=== PATIENT | male | born 2000 ===

== ENCOUNTER 2021-03-29 08:28 | Emergency (ER) | payer OTHER, SELFPAY ==
--- NOTE | ~2021-03-29 | XR_ITS ---
EXAMINATION: XR CHEST CLINICAL INFORMATION: Cough for one COMPARISON: None TECHNIQUE: Frontal view of the chest was obtained. FINDINGS: No significant abnormality is noted involving the heart, lungs, mediastinum, bony thorax or soft tissues. XR/XR chest 1V IMPRESSION: Unremarkable chest exam.
[2021-03-29 09:02] VITALS: BP 119/79; PULSE 74; RESP 18; TEMP 36.7; O2SAT 98; BMI 38.0
--- NOTE | 2021-03-29 09:08 | ED.GENADULT ---
HPI - General Adult General Chief complaint: General Medical Stated complaint: sore throat Time Seen by Provider: 03/29/21 09:25 Source: patient Mode of arrival: ambulatory Limitations: no limitations History of Present Illness HPI narrative: Patient presents to the ED for coughing for 1 week, chest congestion, and sore throat. Patient states not vaccinated against COVID-19. Patient denies Any shortness of breath, fever, chills, night sweats, or body aches. Patient states no chest pain Related Data Previous Rx's Medication Instructions Recorded prednisone 40 mg PO DAILY #10 tab 03/29/21 Allergies Allergy/AdvReac Type Severity Reaction Status Date / Time peanut [PEANUT] Allergy Unknown CLOSES UP Verified 03/29/21 09:05 THROAT Review of Systems Review of Systems: Yes all other systems are reviewed and are negative Constitutional: Constitutional: Reports as per HPI and Reports no additional constitutional complaints Eyes: Eyes: Reports as per HPI and Reports no additional eye complaints ENT: Reports system reviewed and no additional complaints, except as documented, Reports as per HPI and Reports sore throat Cardiovascular: Cardiovascular: Reports as per HPI, Reports no additional cardiovascular complaints, Denies chest pain, Denies dyspnea and Denies dyspnea on exertion Respiratory: Respiratory: Reports as per HPI, Reports no additional respiratory complaints, Reports cough, Denies pain on inspiration, Denies pain with cough, Denies dyspnea and Denies dyspnea on exertion Gastrointestinal: Gastrointestinal: Reports as per HPI and Reports no additional gastrointestinal complaints Genitourinary: Genitourinary: Reports no additional male genitourinary complaints and Reports as per HPI Musculoskeletal: Musculoskeletal: Reports no additional musculoskeletal complaints and Reports as per HPI Neurologic: Reports system reviewed and no additional complaints, except as documented and Reports as per HPI Psychiatric: Psychiatric: Reports no additional psychiatric complaints and Reports as per HPI [facility] Past Medical History Medical History (Updated 03/29/21 @ 10:14 by FELICIA Rowley) Asthma Social History Social History Advance Directives: No Advance Directives Information Provided: No Physical Exam Vital Signs: Vital Signs: Last Vital Signs Temp 98.0 F 03/29/21 09:02 Pulse 74 03/29/21 09:02 Resp 18 03/29/21 09:02 BP 119/79 03/29/21 09:02 Pulse Ox 98 03/29/21 09:02 Body Mass Index 38.0 Const: General: cooperative, healthy appearing, comfortable, no acute distress, well developed, alert, awake and Physically active Orientation/consciousness: patient oriented x3 HENMT: Head: Yes normal to inspection, Yes No palpable skull fracture present, Yes normocephalic and Yes atraumatic Eyes: General: appearance normal, both eyes and all related structures Neck: Neck: Yes normal visual inspection, Yes full ROM, Yes no lymphadenopathy, Yes no meningeal signs, Yes trachea midline, Yes supple and No tender Chest: Chest palpation & inspection: normal inspection of the chest and normal palpation of entire chest wall Resp: Effort & Inspection: normal respiratory effort and able to speak in complete sentences Auscultation: wheezes (mild) expiratory wheezes Cardio: Jugular venous distension: no JVD Heart sounds: S1 normal heart sound present and S2 normal heart sound present GI: Inspection: Yes normal to inspection, No abdominal wall ecchymosis and Yes caput medusae present Palpation (GI): Soft to palpation, not firm, nontender, no guarding and not rigid : General: Yes Bimanual renal exam normal bilaterally, Yes bladder normal to inspection, No CVA tenderness and Yes no CVA tenderness Back/Spine/Pelvis: Back: no CVA tenderness, No CVA tenderness and No back tenderness Skin: General skin exam: no rashes or lesions noted and elasticity normal Neuro: General: patient oriented x3, gait normal, no meningeal signs and CN's II-XI intact bilaterally Cranial nerves: Yes CN's II-XII intact bilaterally Extrem: General: Yes normal to inspection and Yes full ROM Psych: Appearance: grossly normal, well kempt and not disheveled Course Course Course Narrative: Patient will have chest x-ray and COVID swab and strep throat. Reevaluation(s) Reevaluation #1: Patient's COVID swab, strep throat, and chest x-ray normal. Due to mild wheezing patient will be discharged with steroids. Patient already has albuterol inhaler at home. Time: 10:13 Medical Decision Making [facility] Narrative Medical decision making narrative: URI/asthma Lab Data Labs: Lab Results 03/29/21 03/29/21 Range/Units 09:38 09:38 COVID-19 (ANJEL) Negative (Negative) COVID-19 Clin Com See Note S. pyogenes GrpA BRENDON Negative (Negative) Discharge Plan Discharge Clinical Impression: URI (upper respiratory infection) Patient Disposition: Home, Self-Care Instructions: Asthma (ED), Upper Respiratory Infection (ED) Additional Instructions: Youre chest x-ray, COVID-19, and strep test came back negative. You will be discharged with prednisone for symptomatic relief. You can take [id number] cough medication. Also use your asthma inhaler at home as needed. Return to the ED immediately for any chest pain, shortness of breath, coughing up blood, leg swelling, calf pain, and intractable fever, weakness, dizziness, fever, chills, or any other concerning symptoms. Please follow-up with PCP Prescriptions: New prednisone 20 mg tablet 40 mg PO DAILY Qty: 10 RF: 0 Interventions: ED Discharge Assessment Last Done: 03/29/21 10:28 Discharge Date/Time: 03/29/21 10:28 Print Language: Slovenian
[2021-03-29 09:57] LABS: IDNOW Serial# 08D9AD1C; Strep A Nucleic Acid Negative (Negative)
[2021-03-29 10:03] LABS: COVID-19 Test Negative (Negative)
== END 2021-03-29 10:28 | disposition home or self-care (01) ==
PROVIDERS: Physician Assistant; Emergency Provider Emergency Medicine
DX: J06.9 Acute upper respiratory infection, unspecified (principal); J45.909 Unspecified asthma, uncomplicated; Z20.822 Contact with and (suspected) exposure to COVID-19
CPT/HCPCS: 36415; 71045; 87635; 87651; 99283

== ENCOUNTER 2021-09-18 08:15 | Outpatient (REF) | payer OTHER, SELFPAY ==
[2021-09-18 09:59] LABS: MANUAL DIFF FLAG NO
[2021-09-18 10:10] LABS: Basophils Percent Auto 0.3 % (0-2); Eosinophils Absolute Auto 0.4 X10*3/uL (0.0-0.4); Eosinophils Percent Auto 5.7 % (0-4); Hematocrit 46.4 % (42.0-52.0); Hemoglobin 15.4 g/dl (14.0-18.0); Imm Gran Abs Auto 0.01 X10*3/uL (0.00-0.03); Imm Gran Pct Auto 0.1 % (0.0-0.4); Lymphocytes Percent Auto 39.9 % (20-40); Mean Corpuscular HGB Conc 33.2 g/dl (31.0-36.0); Mean Corpuscular Hemoglobin 27.9 pg (27.0-33.0); Mean Corpuscular Volume 84.1 fL (80.0-98.0); Mean Platelet Volume 10.7 fL (9.4-12.4); Monocytes Absolute Auto 0.4 X10*3/uL (0.1-1.2); Monocytes Percent Auto 5.5 % (2-11); Neutrophils Absolute Auto 3.6 x10*3/uL (2.0-8.3); Neutrophils Percent Auto 48.5 % (45-73); Platelet Count 281 X10*3/uL (160-400); Red Blood Count 5.52 X10*6/uL (4.60-5.80); Red Cell Distribution Width 12.6 % (11.0-16.0); White Blood Count 7.4 X10*3/uL (4.8-10.8)
[2021-09-18 10:59] LABS: Alanine Aminotransferase 16 U/L (0-40); Albumin Level 4.5 g/dL (3.5-5.0); Alkaline Phosphatase 68 U/L (39-117); Anion Gap 14 (12-20); Aspartate Amino Transferase 13 U/L (5-37); Bilirubin Total 0.7 mg/dL (0.0-1.0); Blood Urea Nitrogen 16 mg/dL (9-16); Carbon Dioxide 28 mmol/L (22-29); Chloride 104 mmol/L (96-108); Cholesterol 150 mg/dL; Estimated Glomerular Filt Rate > 60; Glucose Fasting 96 mg/dL (60-99); HDL Cholesterol 40 mg/dL; LDL Cholesterol Calculated 92 mg/dl; Potassium 4.6 mmol/L (3.3-5.1); Sodium 141 mmol/L (135-145); Total Protein 7.5 g/dL (6.5-8.0); Triglycerides 91 mg/dL
== END 2021-09-18 08:16 | disposition home or self-care (01) ==
LOC: HO.10HDL 08:15
PROVIDERS: Visit Provider Internal Medicine
DX: Z00.01 Encounter for general adult medical examination with abnormal findings (principal); Z13.31 Encounter for screening for depression; J45.31 Mild persistent asthma with (acute) exacerbation; I10 Essential (primary) hypertension; E66.01 Morbid (severe) obesity due to excess calories
CPT/HCPCS: 36415; 80053; 80061; 85025

== ENCOUNTER 2023-03-22 16:47 | Emergency (ER) | payer OTHER, SELFPAY ==
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
[2023-03-22 17:11] VITALS: BP 168/73; PULSE 81; RESP 18; TEMP 36.3; O2SAT 100; BMI 38.0
--- OUTSIDE RECORDS SUMMARY | 2023-03-22 18:42 | XMS_ITS | Continuity of Care Document ---
Author Name Unknown Organization [facility] Address [address] [place] [address]- Care Team Providers Care Licensed Vocational Nurse Name Role Phone Not on Staff, PCP Primary Care Physician Unavail able Encounter [facility] Date(s): 12/16/21 - 12/16/[address] [address]- Discharge Disposition: A-D/C Home Attending Physician: Benoit Gillette MD Admitting Physician: Benoit Gillette MD Referring Physician: Not on Staff, Referring MD Allergies, Adverse Reactions, Alerts Substance Reaction Severity Status Peanuts Active Medications Knee Support See Instructions, Maintenance, playmaker II spacer, wrap, XL ref: [id number], 08/23/16 14:41:24, Compound Start Date: 08/23/16 Status: Ordered predniSONE 20 mg oral tablet 2 tablet = 40 mg, By Mouth, Daily, for 5 days, # 10 tablet, 0 Refills, Acute 12/21/21 22:36:00 EST,12/16/21 22:36:00 EST, Tablet, [id number], Partial fill upon patient request if the prescription is for a schedule II opioid drug., 173, cm, 03... Start Date: 12/16/21 Stop Date: 12/21/21 Status: Ordered Problem List Condition Effective Dates Status Health Status Inform ant Severe obesity(Confirmed) Active Results Radiology Reports * Exam Date Time Procedure Performing Provider Status 12/16/21 10:07 PM Chest 2 Views Frontal and Lat Radha Vidal; Jhonatan (Verified) Notes: (Chest 2 Views Frontal and Lat) Reason For Exam: Shortness of Breath RESULT: Chest 2 Views Frontal and Lat Chest 2 Views Frontal and Lat Hx of Present Illness: Pt presents with being SOB since this morning, uses albuterol and its not helping, did 2 neb treatments and still feels bad. Pain 6 10; Reason: Shortness of Breath; Clinical Question(s): Pneumonia COMPARISON: None. FINDINGS: LINES AND TUBES: None. LUNGS AND PLEURA: Clear lungs. Normal pulmonary vascularity. No pleural effusion. No pneumothorax. HEART, MEDIASTINUM AND ZACKARY: Heart is normal in size. Normal upper mediastinal and hilar contour. BONES AND SOFT TISSUES: No acute abnormality. IMPRESSION: No acute abnormality. WSN: [id number] Ordering Physician: Benoit Gillette Dictated By: Simeon Mullen MD Dictated Date/Time: 12/16/21 10:28 p Reviewed By: Simeon Mullen MD Signed By: Simeon Mullen MD Signed Date/Time: 12/16/21 10:28 pm Transcribed By: ANSELMO Transcribed Date/Time: 12/16/21 10:27 pm Vital Signs Most recent to oldest [Reference Range]: 1 2 3 Height 173 cm (12/16/21 10:17 PM) 173 cm (12/16/21 8:06 PM) Weight 126.9 kg (12/16/21: PM) 126.9 kg (12/16/21 8:06 PM) Oxygen Saturation [94-100 %] 100 % (12/16/21 10:17 PM) 97 % (12/16/21 9:23 PM) 100 % (12/16/21 8:06 PM) Pulse Rate [55-90 bpm] 105 bpm *H* (12/16/21 10:17 PM) 116 bpm *H* (12/16/21 9:23 PM) 124 bpm *H* (12/16/21 8:06 PM) Body Mass Index [18.5-24.99] 42.4 *>HHI* (12/16/21 10: PM) Blood Pressure [90-138/55-84 mm Hg] 125/63mm Hg (12/16/21 10:17 PM) 147/82mm Hg *H* (12/16/21 8:06 PM) Respiratory Rate [16-30 br/min] 20 br/min (12/16/21 10:17 PM) 24 br/min (12/16/21 9:23 PM) 22 br/min (12/16/21 8:06 PM) Temperature [96.8-100.4 DegF] 99.0 DegF (12/16/21 8:06 PM) Liters per Minute 0 L/min (12/16/21 10:17 PM) Mode of Delivery (Oxygen) Room air (12/16/21 10:17 PM) Room air (12/16/21 9:23 PM) Room air (12/16/21 8:06 PM) Blood pressure sites Arm, left (12/16/21 10:17 PM) Arm, right (12/16/21 8:06 PM) Temperature Route Oral (12/16/21 8:06 PM) Dry Weight 126.9 kg (12/16/21 10:17 PM) 126.9 kg (12/16/21 8:06 PM) Weight Obtained Via Standing scale (12/16/21 8:06 PM) Dry Weight Obtained Via Standing scale (12/16/21 8:06 PM) Social History Social History Type Response Smoking Status Never smoker entered on: 08/23/16 Sex
[2023-03-22] MEDS: Ibuprofen 600 MG TABLET PO (19:28)
--- NOTE | 2023-03-22 19:36 | PC.NURSE ---
Splint being placed to right lower extremity and patient being taught how to use crutches
[2023-03-22 20:06] VITALS: BP 141/70; PULSE 84; RESP 16; O2SAT 99
== END 2023-03-22 20:08 | disposition home or self-care (01) ==
PROVIDERS: Emergency Provider Emergency Medicine
DX: S82.51XA Displaced fracture of medial malleolus of right tibia, initial encounter for closed fracture (principal); V18.0XXA Pedal cycle driver injured in noncollision transport accident in nontraffic accident, initial encounter; Y93.89 Activity, other specified; Y92.414 Local residential or business street as the place of occurrence of the external cause; Y99.9 Unspecified external cause status
CPT/HCPCS: 29515; 73610; 99283; 99284

== ENCOUNTER 2023-03-31 11:08 | Outpatient (REF) | payer OTHER, SELFPAY ==
--- NOTE | ~2023-03-31 | XR_ITS ---
EXAMINATION: XR ANKLE, RIGHT CLINICAL INFORMATION: Right ankle pain. COMPARISON: 03/22/2023 and 10/17/2015. TECHNIQUE: AP, lateral, and mortise views of the right ankle. FINDINGS: There is again noted to be an essentially nondisplaced fracture of the posterior malleolus which appears to be intra-articular. The fracture line is slightly more evident with distraction of fracture fragments by approximately 1 mm. Ankle mortise is congruent. XR/XR ankle RT min 3V IMPRESSION: Probable some degree of demineralization with fracture line being more evident and showing posterior malleolar fracture extending into the joint space.
== END 2023-03-31 11:09 | disposition home or self-care (01) ==
LOC: HO.HOSX 11:08
PROVIDERS: Visit Provider Physician Assistant
DX: S82.391A Other fracture of lower end of right tibia, initial encounter for closed fracture (principal)
CPT/HCPCS: 73610; 99202

== ENCOUNTER 2023-04-11 10:28 | Outpatient (REF) | payer OTHER, SELFPAY ==
--- NOTE | ~2023-04-11 | XR_ITS ---
EXAMINATION: XR ANKLE, RIGHT CLINICAL INFORMATION: Pain in unspecified ankle and joints of unspecified foot. COMPARISON: 03/31/2023, 03/22/2023, 10/17/2015. TECHNIQUE: AP, lateral, and mortise views of the right ankle. FINDINGS: Redemonstration of a fracture of the posterior malleolus which appears to be intra-articular. Fracture line appears less visible suggesting some interval callus formation. Redemonstration of distraction of fracture fragments by approximately 1 mm. Ankle mortise is congruent. XR/XR ankle RT min 3V IMPRESSION: Posterior malleolar fracture line appears less visible suggesting some interval callus formation.
== END 2023-04-11 10:29 | disposition home or self-care (01) ==
LOC: HO.HOSX 10:28
PROVIDERS: Visit Provider Physician Assistant
DX: S82.391A Other fracture of lower end of right tibia, initial encounter for closed fracture (principal); X58.XXXA Exposure to other specified factors, initial encounter; Y93.9 Activity, unspecified; Y92.9 Unspecified place or not applicable; Y99.9 Unspecified external cause status
CPT/HCPCS: 29405; 73610

== ENCOUNTER 2023-05-07 11:43 | Outpatient (REF) | payer OTHER, SELFPAY ==
--- NOTE | ~2023-05-07 | XR_ITS ---
EXAMINATION: XR ANKLE, RIGHT CLINICAL INFORMATION: Follow-up COMPARISON: 04/11/2023 TECHNIQUE: AP, lateral, and mortise views of the right ankle. FINDINGS: There is interval healing of nondisplaced fracture of posterior malleolus. Alignment is anatomic. No erosions. Joint spaces are maintained. Soft tissues are normal. XR/XR ankle RT min 3V IMPRESSION: Interval healing of posterior malleolar fracture
== END 2023-05-07 11:44 | disposition home or self-care (01) ==
LOC: HO.HOSX 11:43
PROVIDERS: Visit Provider Physician Assistant
DX: S82.391D Other fracture of lower end of right tibia, subsequent encounter for closed fracture with routine healing (principal)
CPT/HCPCS: 73610

== ENCOUNTER 2023-05-07 14:02 | Outpatient (AMB) | payer OTHER, SELFPAY ==
[2023-05-07 14:33] VITALS: BMI 38.0
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
== END 2023-05-07 14:51 | disposition home or self-care (01) ==
LOC: HO.HOS 14:02
PROVIDERS: Visit Provider Physician Assistant
DX: S82.391A Other fracture of lower end of right tibia, initial encounter for closed fracture (principal)
CPT/HCPCS: 99024

== ENCOUNTER 2023-06-23 06:48 | Outpatient (REF) | payer OTHER, SELFPAY ==
--- NOTE | ~2023-06-23 | XR_ITS ---
EXAMINATION: XR ANKLE, RIGHT CLINICAL INFORMATION: Right ankle and foot pain. COMPARISON: Multiple priors, most recent right ankle radiographs dated 05/07/2023. TECHNIQUE: AP, lateral, and mortise views of the right ankle. FINDINGS: Healed posterior malleolar fracture in anatomic alignment. The ankle mortise is maintained. No acute fracture or dislocation. No concerning lytic or blastic osseous lesion. No abnormal soft tissue calcification. XR/XR ankle RT min 3V IMPRESSION: Healed posterior malleolar fracture in anatomic alignment.
== END 2023-06-23 06:49 | disposition home or self-care (01) ==
LOC: HO.HOSX 06:48
PROVIDERS: Visit Provider Physician Assistant
DX: S82.391D Other fracture of lower end of right tibia, subsequent encounter for closed fracture with routine healing (principal)
CPT/HCPCS: 73610

== ENCOUNTER 2023-06-23 10:21 | Outpatient (AMB) | payer OTHER, SELFPAY ==
--- NOTE | 2023-06-23 10:33 | A.OFFVIS_ITS ---
Intake Vital Signs 06/23/23 10:40 Height 5 ft 8 in Weight 250 lb BMI 38.0 Intake Visit Reasons: OV-RT posterior mal fx,-w/xrays DOI 03/22/23 Intake Note: Aftab a 22 year old female who presents today for a follow up of right ankle fx, DOI 03/22/23. Xrays updated in office. Patient reports he continues to wear boot as instructed. He has discomfort while walking without boot wear and aches in the morning. Allergies peanut [PEANUT] Allergy (Unknown, Verified 06/23/23 10:35) CLOSES UP THROAT HPI OV-RT posterior mal fx,-w/xrays DOI 03/22/23 HPI Details 22-year-old male who returns to the [facility] today for a follow-up of right ankle fracture, 03/22/23. He states he has discomfort while ambulation without the boot and he does c/o aches in the morning. He continues to wear the brace as instructed. [facility] Medical History Asthma Social History Alcohol intake: never Current occupational status: employed Current occupation: installation Review of Systems Const All systems reviewed & are unremarkable except as noted in HPI and below Physical Exam Vital Signs: BMI result Body Mass Index 38.0 Extrem Other: Right ankle: Normal to inspection. Swelling has resolved throughout the ankle into the foot with minimal tenderness along the posterior malleolus. Resolved bruising. Pulses and sensations are intact. Results Reviewed Results Reviewed: Xrays were obtained in the office today and [facility] show a non displaced posterior malleolar fracture with healing Assessment & Plan Assessment & Plan (1) Fracture of posterior malleolus of right tibia: Code(s): S82.391A - Other fracture of lower end of right tibia, initial encounter for closed fracture Qualifiers: Encounter type: subsequent encounter Fracture type: closed Fracture healing: with routine healing Qualified Code(s): S82.391D - Other fracture of lower end of right tibia, subsequent encounter for closed fracture with routine healing Plan He has physical therapy appointment scheduled for July 02 which he will attend. He was transitioned to an off the shelf lace-up ankle brace and he will wean out of this with physical therapy. He will continue to remain out of work until I see him back in 6 weeks, sooner if needed. Orders: Orders XR ankle RT min 3V Today M25.571 - Pain in right ankle and joints of right foot Patient Instructions: Scribed for Mervin Velazquez PA-C, by Goran Nazario medical practitioners, on 06/23/2023 at 10:15 AM EST. I, Mervin Velazquez PA-C, have personally reviewed and agree with the information entered by the scribe. Coding Level of Care Code Global (36119) Diagnoses Closed fracture of posterior malleolus of right tibia with routine healing, subsequent encounter S82.391D Encounter type: subsequent encounter Fracture type: closed Fracture healing: with routine healing
[2023-06-23 10:40] VITALS: BMI 38.0
== END 2023-06-23 11:17 | disposition home or self-care (01) ==
PROVIDERS: Visit Provider Physician Assistant
DX: S82.391D Other fracture of lower end of right tibia, subsequent encounter for closed fracture with routine healing (principal)
CPT/HCPCS: 99024

== ENCOUNTER 2023-08-07 12:00 | Outpatient (RCR) | payer OTHER, SELFPAY ==
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
== END 2023-09-17 13:10 | disposition home or self-care (01) ==
LOC: HO.PT 12:00
PROVIDERS: Visit Provider Physician Assistant
DX: S82.391D Other fracture of lower end of right tibia, subsequent encounter for closed fracture with routine healing (principal)
CPT/HCPCS: 97110; 97112; 97161

== ENCOUNTER 2023-09-03 08:11 | Outpatient (AMB) | payer OTHER, SELFPAY ==
--- NOTE | 2023-09-03 08:18 | A.OFFVIS_ITS ---
Intake Vital Signs 09/03/23 08:19 Height 5 ft 8 in Weight 250 lb BMI 38.0 Intake Visit Reasons: OV-RT posterior mal fx,-w/xrays DOI 03/22/23 Intake Note: Aftab a 22 year old male presents today for a follow up of right ankle fx, DOI 03/22/23. Patient reports he is doing well, states pain with flexing his foot. He has completed PT and discontinued use of ankle brace. Allergies peanut [PEANUT] Allergy (Unknown, Verified 09/03/23 08:30) CLOSES UP THROAT HPI OV-RT posterior mal fx,-w/xrays DOI 03/22/23 HPI Details 22-year-old male who returns to the [facility] today for a follow-up of right posterior malleolus fracture, 03/22/23. He states he is doing well but he does c/o pain in the anterior aspect of with flexing his foot. He also reports experiencing pain while stomping on wood. He has no other concerns today. [facility] Medical History Asthma Alcohol intake: never Current occupational status: employed Current occupation: installation Review of Systems Const All systems reviewed & are unremarkable except as noted in HPI and below Physical Exam Vital Signs: BMI result Body Mass Index 38.0 Extrem Other: Right ankle: Normal to inspection. Swelling has resolved throughout the ankle into the foot with no tenderness along the posterior malleolus. Resolved bruising. Pulses and sensations are intact. Results Reviewed Results Reviewed: Xrays were obtained in the office today and personally reviewed by me of the right ankle show healed posterior malleolar fracture with healing Assessment & Plan Assessment & Plan (1) Fracture of posterior malleolus of right tibia: Code(s): S82.391A - Other fracture of lower end of right tibia, initial encounter for closed fracture Qualifiers: Encounter type: subsequent encounter Fracture healing: with routine healing Fracture type: closed Qualified Code(s): S82.391D - Other fracture of lower end of right tibia, subsequent encounter for closed fracture with routine healing Plan He is going to increase activity as tolerated and he will return to work on 08/08/23 without restrictions and see us back as needed. Orders: Orders XR ankle RT min 3V Today M25.571 - Pain in right ankle and joints of right foot Patient Instructions: Scribed for Mervin Velazquez PA-C, by Goran Nazario medical transcription supervisor, on 09/03/2023 at 8:15 AM SHEREE. Mervin Pa PA-C, have personally reviewed and agree with the information entered by the scribe. Coding Level of Care Code Global (05062) Diagnoses Closed fracture of posterior malleolus of right tibia with routine healing, subsequent encounter S82.391D Encounter type: subsequent encounter Fracture healing: with routine healing Fracture type: closed
[2023-09-03 08:19] VITALS: BMI 38.0
== END 2023-09-03 08:35 | disposition home or self-care (01) ==
PROVIDERS: Visit Provider Physician Assistant
DX: S82.391D Other fracture of lower end of right tibia, subsequent encounter for closed fracture with routine healing (principal)
CPT/HCPCS: 99213

== ENCOUNTER 2023-09-03 15:03 | Outpatient (REF) | payer OTHER, SELFPAY ==
--- NOTE | ~2023-09-03 | XR_ITS ---
EXAMINATION: XR ANKLE, RIGHT CLINICAL INFORMATION: Right ankle and joints of foot COMPARISON: 06/23/2023 TECHNIQUE: AP, lateral, and mortise views of the right ankle. FINDINGS: Redemonstration of healed posterior malleolar fracture in anatomic alignment. The joint spaces are maintained. Alignment preserved. XR/XR ankle RT min 3V IMPRESSION: Healed posterior malleolar fracture in anatomic alignment.
== END 2023-09-03 15:04 | disposition home or self-care (01) ==
LOC: HO.HOSX 15:03
PROVIDERS: Visit Provider Physician Assistant
DX: M25.571 Pain in right ankle and joints of right foot (principal)
CPT/HCPCS: 73610; 99212

== ENCOUNTER 2025-09-27 10:26 | Emergency (ER) | payer OTHER, SELFPAY ==
[2025-09-27 10:48] VITALS: BP 126/92; PULSE 78; RESP 18; TEMP 37; O2SAT 100; BMI 39.5
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
--- NOTE | 2025-09-27 10:53 | ECG_ITS ---
Test Reason : CO exposure Blood Pressure : */* mmHG Vent. Rate : 61 BPM Atrial Rate : 61 BPM P-R Int : 148 ms QRS Dur : 76 ms QT Int : 396 ms P-R-T Axes : 48 51 27 degrees QTcB Int : 398 ms Normal sinus rhythm with sinus arrhythmia Normal ECG When compared with ECG of 28-Nov-2018 10:57, No significant change was found Referred By: Rosa Elena Silva Electronically Signed By: Jayden Bhagat
[2025-09-27 11:18] LABS: MANUAL DIFF FLAG NO
[2025-09-27 11:20] LABS: Hematocrit 44.9 % (42.0-52.0); Hemoglobin 15.0 g/dl (14.0-18.0); Imm Gran Abs Auto 0.01 X10*3/uL (0.00-0.03); Imm Gran Pct Auto 0.2 % (0.0-0.4); Lymphocytes Absolute Auto 2.5 X10*3/uL (1.2-4.9); Mean Corpuscular HGB Conc 33.4 g/dl (31.0-36.0); Mean Corpuscular Hemoglobin 28.1 pg (27.0-33.0); Mean Corpuscular Volume 84.2 fL (80.0-98.0); NRBC Abs Auto 0.000 X10*3/uL (0.0-0.012); NRBC Pct Auto 0.0 /100WBC (0.0-0.2); Platelet Count 272 X10*3/uL (160-400); Red Blood Count 5.33 X10*6/uL (4.60-5.80); White Blood Count 6.3 X10*3/uL (4.8-10.8)
[2025-09-27 11:22] LABS: VBG HCO3 29 mmol/L (22-26); VBG O2 % Saturation 81.0 %
[2025-09-27 11:22] LABS: Carbon Monoxide POC 2.8 %
[2025-09-27 11:22] LABS: Venous Blood Gas Refer to POC result
[2025-09-27 11:40] LABS: Carbon Monoxide POC 2.0 %
[2025-09-27 11:40] LABS: Anion Gap 11 (12-20); Blood Urea Nitrogen 11 mg/dL (9-16); Calcium 9.5 mg/dL (8.4-10.2); Carbon Dioxide 29 mmol/L (22-29); Chloride 105 mmol/L (96-108); Creatinine Clr Calc Pharmacy 151.5; Estimated Glomerular Filt Rate > 60; Potassium 4.2 mmol/L (3.3-5.1); Sodium 141 mmol/L (135-145)
[2025-09-27 12:02] VITALS: BP 126/92; PULSE 78; RESP 18; TEMP 37; O2SAT 100
--- OUTSIDE RECORDS SUMMARY | 2025-09-27 15:47 | XMS_ITS | Clinical Summary ---
Author Organization [facility] Address [address] [place] [address] Care Team Providers Care Piano Player Name Role Phone Pcp, No Primary Care Provider Unavailabl e Allergies Active Allergy Reactions Criticality Noted Date Comments Peanut Oil Shortness Of Breath High 01/28/2021 Medications ibuprofen (MOTRIN) 600 MG tablet Take 1 tablet (600 mg total) by mouth 4 times daily (every 6 hours) as needed for mild pain or moderate pain (pain). 15 tablet 05/19/2021 Active methocarbamol (ROBAXIN) 750 MG tablet Take 1 tablet (750 mg total) by mouth 4 times daily (every 6 hours) as needed for muscle spasms. 7 tablet 05/19/2021 Active Social History Tobacco Use Types Packs/Day Years Used Date Smoking Tobacco: Never Assessed Sex and Gender Information Value Date Recorded Sex Assigned at Not on file Legal Sex Male 6:40 PM EST Gender Identity Not on file Sexual Orientation Not on file Last Filed Vital Signs Vital Sign Reading Time Taken Comments Blood Pressure 132/68 05/19/2021 12:26 PM EDT Pulse 96 05/19/2021 12:26 PM EDT Temperature 37.3 C (99.1 F) 05/19/2021 10:13 AM EDT Respiratory Rate 16 05/19/2021 12:26 PM EDT Oxygen Saturation 99% 05/19/2021 12:26 PM EDT Inhaled Oxygen Concentration - - Weight - - Height - - Body Mass Index - - Plan of Treatment Health Maintenance Due Date Last Done Comments Hepatitis C Virus Screening 1999 HIV Screening 2012 HPV Vaccines (1 - Male 3-dose series) 2014 DTaP/Tdap/Td Vaccines (1 - Tdap) 2018 Hepatitis B Vaccines (1 of 3 - 19+ 3-dose series) 2018 Influenza Vaccine 05/13/2025 11/04/2019, , 07/03/2016, Additional history exists COVID-19 Vaccine ( - 2024- season) 2025 Pneumococcal Vaccine: Pediatric (0-5 Years) and At-Risk Patients (6 to 49 Years) Aged Out No longer eligible based on patient's age to complete this topic Insurance [employer] [facility] [facility] [employer] TPL (AUTO/LIABILITY) Compensation Care Teams Piano Player Relationship Specialty Start Date End Date Pcp, No [address] [place] [address] PCP - General 05/19/21
== END 2025-09-27 12:02 | disposition home or self-care (01) ==
LOC: HO.ED 11:56
PROVIDERS: Emergency Provider Emergency Medicine
DX: T58.11XA Toxic effect of carbon monoxide from utility gas, accidental (unintentional), initial encounter (principal); R51.9 Headache, unspecified; R42 Dizziness and giddiness; J45.909 Unspecified asthma, uncomplicated
CPT/HCPCS: 36415; 80048; 82375; 82803; 85025; 93005; 99283

== ENCOUNTER → 2025-09-27 10:53 | Outpatient (BNV) | payer OTHER, SELFPAY | PROVIDERS: Emergency Provider Emergency Medicine; Visit Provider Internal Medicine Cardiovascular Disease | DX: Z13.6 Encounter for screening for cardiovascular disorders (principal) | CPT/HCPCS: 93010 ==